=== PATIENT | female | born 1970 | race African-American/Black ===

== ENCOUNTER 2016-10-03 21:24 | Emergency (ER) | payer OTHER ==
[~2016-10-03] VITALS: Ht 152.4 cm; Wt 108.2 kg
[~2016-10-03 21:24] MED LIST: CYTOTEC200 MCG PR; Feosol PO; MOTRIN600 MG PO; PriLOSEC OTC PO
[2016-10-03 22:04] LABS: HEMATOCRIT 33.1 % (36.0-46.0); MCH 24.9 PG (29.0-34.0); MCHC 30.5 G/DL (30.0-36.0); MCV 81.5 FL (83-99); MEAN PLAT.VOLUME 12.3 uM^3 (9.5-12.4); PLATELET COUNT 297 K/uL (156-360); RBC DIS.WIDTH-CV 16.9 % (11.8-14.6); RBC DIS.WIDTH-SD 50.1 % (39-53); RED BLOOD COUNT 4.06 M/uL (3.80-5.20); WHITE BLOOD COUNT 8.7 K/uL (4.1-10.2)
[2016-10-03 22:12] LABS: CHLORIDE 105 mEq/L (99-109); POTASSIUM 4.1 mEq/L (3.7-5.4); SODIUM 139 mEq/L (136-147)
[2016-10-03 22:14] LABS: GLUCOSE 104 mg/dL (70-99)
[2016-10-03 22:16] LABS: ANION GAP 11 MEQ/L (2-14); TOTAL BILIRUBIN 0.2 mg/dL (0.0-1.0)
[2016-10-03 22:18] LABS: ALKALINE PHOSPHATASE 54 IU/L (3-129); GFR ESTIMATE (CALCULATED) > 59 mL/min/
[2016-10-03 22:19] LABS: UREA NITROGEN (BUN) 9 mg/dL (9-23)
[2016-10-03 22:22] LABS: LIPASE 28 U/L (1.0-51.0)
[2016-10-03 22:28] LABS: BILIRUBIN NEGATIVE; BLOOD NEGATIVE; COLOR YELLOW ((YELLOW)); GLUCOSE (STRIP) NEGATIVE; KETONES NEGATIVE; LEUKOCYTES NEGATIVE; NITRITE NEGATIVE; PROTEIN (STRIP) 30; SPECIFIC GRAVITY 1.026 (1.000-1.030); UROBILINOGEN 0.2 MG/DL (0.2-1.0)
[2016-10-03 22:29] LABS: QUANTITATIVE HCG < 4.0 MIU/ML
[2016-10-03 22:30] LABS: ADD MIUA? NO; UCUL ADDED? NO
[2016-10-04] MEDS ORDERED: MOTRIN600 MG PO (00:24)
[2016-10-04 00:32] VITALS: BP 124/66
== END 2016-10-04 00:33 | disposition home or self-care (01) ==
LOC: EME 21:24
PROVIDERS: Physician Assistant
DX: S20.212A Contusion of left front wall of thorax, initial encounter (principal); R10.9 Unspecified abdominal pain; V49.50XA Passenger injured in collision with unspecified motor vehicles in traffic accident, initial encounter
CPT/HCPCS: 71260; 74177; 80053; 81003; 83690; 84702; 85027; 99281; 99284

== ENCOUNTER → 2016-12-06 | Outpatient (CLI) | payer OTHER | END | disposition home or self-care (01) | LOC: MRI 13:17 → RAD 13:30 | DX: M51.26 Other intervertebral disc displacement, lumbar region (principal); R93.7 Abnormal findings on diagnostic imaging of other parts of musculoskeletal system | CPT/HCPCS: 72148 ==